=== PATIENT | female | born 1955 | race Caucasian/White ===

== ENCOUNTER 2018-02-07 18:40 | Emergency (ER) | payer MEDICARE ==
[~2018-02-07] VITALS: Ht 172.7 cm; Wt 63.5 kg
[2018-02-07] MEDS ORDERED: TRAZODONE HCL50 MG PO (19:07)
[2018-02-07] MEDS ORDERED: WELLBUTRIN SR150 MG (19:08)
[2018-02-07] MEDS ORDERED: KETOROLAC TROMETHAMINE 60 MG/2 ML VIAL IM ONE (19:15)
[2018-02-07 19:46] VITALS: BP 145/72
== END 2018-02-07 19:47 | disposition home or self-care (01) ==
LOC: FSED 18:40
DX: G89.11 Acute pain due to trauma (principal); S96.912A Strain of unspecified muscle and tendon at ankle and foot level, left foot, initial encounter; Y93.41 Activity, dancing; F41.9 Anxiety disorder, unspecified
CPT/HCPCS: 73620; 96372; 99283; J1885